=== PATIENT | female | born 1950 | race Caucasian/White ===

== ENCOUNTER → 2019-04-17 | Outpatient (CLI) | payer MEDICARE, OTHER | LOC: COL.RAD 11:34 | DX: H90.42 Sensorineural hearing loss, unilateral, left ear, with unrestricted hearing on the contralateral side (principal) | CPT/HCPCS: A9585 ==

== ENCOUNTER → 2022-04-07 | Outpatient (CLI) | payer MEDICARE, OTHER | LOC: DIA.ED 10:31 | DX: E11.9 Type 2 diabetes mellitus without complications (principal); I10 Essential (primary) hypertension; E78.5 Hyperlipidemia, unspecified ==

== ENCOUNTER 2022-07-20 12:10 | Day surgery (SDC) | payer MEDICARE, OTHER ==
[~2022-07-20] VITALS: Ht 167.6 cm; Wt 98.9 kg
[2022-07-20 13:01] VITALS: BP 120/74; PULSE 58; TEMP 97.8
[2022-07-20] MEDS ORDERED: PRINIVIL5 MG PO (13:16)
[2022-07-20] MEDS ORDERED: ELIQUIS 5MG PO (13:16)
[2022-07-20] MEDS ORDERED: TOPROL XL 50MG50 MG PO (13:17)
[2022-07-20] MEDS ORDERED: WELLBUTRIN XL150 MG PO (13:17)
[2022-07-20] MEDS ORDERED: SYNTHROID 0.10.15 MG PO (13:17)
[2022-07-20] MEDS ORDERED: FLONASE NASAL S16 GM NS (13:18)
[2022-07-20] MEDS ORDERED: LIPITOR 10MG10 MG PO (13:18)
[2022-07-20 16:24] VITALS: BP 107/79; PULSE 62; TEMP 96.8
--- NOTE | 2022-07-20 16:24 | NUR ---
PATIENT ARRIVED TO ROOM 3 FOLLOWING PROCEDURE. PATIENT ALERT AND ORIENTED, DENIES PAIN AND NAUSEA. BREATHING REGULAR AND UNLABORED. HEART TONES REGULAR. SEE CHART FOR VITAL SIGNS. HANDOFF COMPLETED BEDSIDE WITH OR NURSE AND CAFETERIA WORKER. TWO INCISIONS WITH SKIN GLUE PRESENT TO RIGHT UPPER CHEST, NO DRAINAGE OR BLEEDING PRESENT. BLOOD SUGAR 80. PATIENT HAD WATER WITH A MUFFIN AND CHOCOLATE PUDDING, ALL FOODS AND DRINKS TOLERATED WELL. CALL LIGHT IN REACH.
[2022-07-20 16:33] VITALS: BP 141/56; PULSE 62
[2022-07-20 16:35] VITALS: BP 123/67; PULSE 56
[2022-07-20 16:45] VITALS: BP 140/64; PULSE 61
--- NOTE | 2022-07-20 16:45 | NUR ---
PATIENT DENIES PAIN AND NAUSEA. SURGICAL SITES CLEAN AND DRY. DISCHARGE TEACHING COMPLETED WITH PRINTED INSTRUCTIONS AND PORT A CATH CARDS/INFO PACKETS SENT HOME WITH PATIENT. PATIENT VERBALIZED UNDERSTANDING OF TEACHING. PATIENT AMBULATED TO THE RESTROOM WITH A STEADY GAIT AND VOIDED WITHOUT DIFFICULTY. IV REMOVED. PATIENT DISCHARGED HOME WITH SISTER TRANSPORT.
[2022-07-20] MEDS ORDERED: NORCO 325 MG-51 TAB PO (16:47)
== END 2022-07-20 17:20 | disposition home or self-care (01) ==
LOC: SDCO 12:10
DX: C57.00 Malignant neoplasm of unspecified fallopian tube (principal); Z87.891 Personal history of nicotine dependence
CPT/HCPCS: C1788; J0690; J1644; J2704

== ENCOUNTER → 2022-08-12 | Outpatient (CLI) | payer MEDICARE, OTHER ==
[~2022-08-12] MED LIST: ELIQUIS 5MG PO; FLONASE NASAL S16 GM NS; LIPITOR 10MG10 MG PO; NORCO 325 MG-51 TAB PO; PRINIVIL5 MG PO; SYNTHROID 0.10.15 MG PO; TOPROL XL 50MG50 MG PO; WELLBUTRIN XL150 MG PO
== END ==
LOC: DIA.ED
DX: E11.40 Type 2 diabetes mellitus with diabetic neuropathy, unspecified (principal); E78.5 Hyperlipidemia, unspecified; I10 Essential (primary) hypertension
CPT/HCPCS: G0108

== ENCOUNTER 2024-01-16 08:32 | Inpatient (IN) | payer MEDICARE, OTHER ==
[~2024-01-16] VITALS: Ht 167.6 cm; Wt 88.0 kg
[2024-01-16] VITALS (9 sets, daily range): BP systolic 107–125; BP diastolic 60–78; PULSE 76–98; TEMP 97.5–98.2
[2024-01-16] MEDS ORDERED: PROTONIX 40MG T40 MG PO (09:09)
[2024-01-16] MEDS ORDERED: HCTZ 25MG TAB25 MG PO (09:10)
[2024-01-16] MEDS ORDERED: DESYREL 50MG50 MG PO (09:10)
[2024-01-16] MEDS ORDERED: ANTIVERT 12.512.5 MG PO (09:13)
--- NOTE | 2024-01-16 09:37 | NUR ---
PATIENT ARRIVED TO MEDICAL FLOOR AT APPROX 0845. PATIENT IS ALERT, ORIENTED, AND AMBULATED TO HER ROOM. ADMISSION VSS. ADMISSION ASSESSMENT AND MED REC COMPLETE. MED LIST COPIED AND IN CHART. TELEMETRY ON. 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 DENIES PAIN OR DISCOMFORT AT THIS TIME. INITIAL EKG COMPLETE. PATIENT ORIENTED TO ROOM. CALL LIGHT WITHIN REACH.
[2024-01-16] MEDS ORDERED: Temazepam 15 MG CAP PO PRN (09:45)
[2024-01-16] MEDS ORDERED: Docusate Sodium 100 MG CAP PO PRN (09:45)
[2024-01-16] MEDS ORDERED: Acetaminophen 325 MG TAB PO PRN (09:45)
[2024-01-16] MEDS ORDERED: CARDIZEM CD 24240 MG PO (10:15)
[2024-01-16] MEDS ORDERED: Meclizine 25 MG TAB PO PRN (10:30)
--- NOTE | 2024-01-16 10:46 | NUR ---
THIS RN ACCESSED PORT WITH CONDOMINIUM MANAGER ASSISTING. LABS DRAWN.
--- NOTE | 2024-01-16 11:16 | NUR ---
Social work student met with patient to discuss discharge planning. Patient lives in [place] and sees Dr. Carter for primary care. Patient gets medications from [facility] in [place] with no difficulties. Patient has Medicare A and B for primary coverage and has secondary insurance coverage but was not able to remember the name. Patient does not use any DME and is independent with ADLs and driving. Patient has DPOA-HC on file which designates her daughters, Britni as primary (ph# [phone]) and Agatha as secondary (ph# [phone]). Patient plans to return home at time of discharge. Discharge plan: Home
[2024-01-16 11:33] LABS: BASO % 0.1 % (0.0-2.0); EOS # 0.1 K/mm3 (0.0-0.7); EOS % 1.3 % (0.0-4.0); GRAN # 6.7 K/mm3 (1.4-6.5); GRAN % 65.6 % (42.2-75.2); HEMOGLOBIN 10.2 g/dl (12.5-16.0); LYMPH # 2.4 K/mm3 (1.2-3.4); LYMPH % 23.1 % (20.0-51.0); MEAN CELL VOLUME 98 fl (80.0-100.0); MEAN CORPUSCULAR HEMOGLOBIN 31 pg (27-31); MEAN CORPUSCULAR HGB CONC 32 g/dl (33.0-37.0); MEAN PLATELET VOLUME 9.8 fl (7.4-10.4); MONO % 9.5 % (1.7-9.3); PLATELET COUNT 237 K/mm3 (130-400); RED BLOOD COUNT 3.26 M/mm3 (4.10-5.30); REDCELL DISTRIBUTION WIDTH-CV 13.3 % (11.5-14.5)
[2024-01-16 11:35] LABS: HEMATOCRIT 31.8 % (37.0-47.0); INR 1.7 (0.8-3.0)
[2024-01-16 11:42] LABS: ALBUMIN 2.7 g/dL (3.4-4.8); BILIRUBIN,TOTAL 0.3 mg/dL (0.2-1.2); POTASSIUM 3.2 mEq/L (3.5-4.5); TOTAL PROTEIN 5.4 g/dl (6.2-8.1)
[2024-01-16] MEDS ORDERED: Magnesium Sulfate 4% 50 ML IV ONE (14:00)
[2024-01-16 14:04] LABS: CREATININE, serum 0.84 mg/dL (0.57-1.11)
[2024-01-16] MEDS ORDERED: *Potassium Replacement Protocol MC SCH (15:30)
[2024-01-16] MEDS ORDERED: Apixaban 5 MG TABLET PO SCH (21:00)
[2024-01-16] MEDS ORDERED: Atorvastatin 10 MG TAB PO SCH (21:00)
[2024-01-16] MEDS ORDERED: traZODone 50 MG TAB PO SCH (21:00)
--- NOTE | 2024-01-16 21:06 | NUR ---
Patient assessed at this time, see shift assessment, A/Ox4, denies pain or discomfort, sotalol initiated still HR at 70's, BP 113/67, with portacath to right chest, dressing CDI, flushes well with good blood return, denies further needs, call light and personal items within reach, will continue to monitor.
[2024-01-17] VITALS (14 sets, daily range): BP systolic 94–123; BP diastolic 58–82; PULSE 58–77; TEMP 97.8–98.4
--- NOTE | 2024-01-17 | NUR ---
Patient resting in bed, looks comfortable, denies further needs.
[2024-01-17 06:29] LABS: HEMOGLOBIN 10.6 g/dl (12.5-16.0); MEAN CELL VOLUME 97 fl (80.0-100.0); MEAN CORPUSCULAR HEMOGLOBIN 30 pg (27-31); MEAN CORPUSCULAR HGB CONC 31 g/dl (33.0-37.0); MEAN PLATELET VOLUME 9.7 fl (7.4-10.4); PLATELET COUNT 226 K/mm3 (130-400); RED BLOOD COUNT 3.49 M/mm3 (4.10-5.30); REDCELL DISTRIBUTION WIDTH-CV 13.4 % (11.5-14.5)
[2024-01-17 06:31] LABS: HEMATOCRIT 33.8 % (37.0-47.0)
[2024-01-17 06:54] LABS: CREATININE, serum 1.03 mg/dL (0.57-1.11); POTASSIUM 4.7 mEq/L (3.5-4.5)
[2024-01-17] MEDS ORDERED: Lisinopril 5 MG TAB PO SCH (09:00)
[2024-01-17] MEDS ORDERED: buPROPion XL (24-HR) 150 MG TAB PO SCH (09:00)
--- NOTE | 2024-01-17 18:06 | NUR ---
PATIENT CONVERTED TO NSR ON TELEMETRY. EKG COMPLETE. PATIENT DENIES PAIN OR DISCOMFORT. UNEVENTFUL AFTERNOON. SITTING UP IN CHAIR EATING DINNER.
--- NOTE | 2024-01-17 20:30 | NUR ---
Initial shift assessment done- denies pain/SOB/palpitations/dizziness. VSS. Tele on SR 69/min, Will be NPO after MN just in case a cardioversion is needed, No requests, hopes to get some sleep tonight. Up to bathroom on own- steady on feet.
[2024-01-18] VITALS (8 sets, daily range): BP systolic 94–121; BP diastolic 61–69; PULSE 57–64; TEMP 98–98.2
--- NOTE | 2024-01-18 06:15 | NUR ---
Has slept most of the night-- NPO till cardiology sees, Tele shows 61/min SR
[2024-01-18 06:23] LABS: HEMOGLOBIN 10.1 g/dl (12.5-16.0); MEAN CELL VOLUME 99 fl (80.0-100.0); MEAN CORPUSCULAR HEMOGLOBIN 31 pg (27-31); MEAN CORPUSCULAR HGB CONC 32 g/dl (33.0-37.0); MEAN PLATELET VOLUME 9.8 fl (7.4-10.4); PLATELET COUNT 215 K/mm3 (130-400); RED BLOOD COUNT 3.24 M/mm3 (4.10-5.30); REDCELL DISTRIBUTION WIDTH-CV 13.3 % (11.5-14.5)
[2024-01-18 06:27] LABS: HEMATOCRIT 31.9 % (37.0-47.0)
[2024-01-18 06:40] LABS: CALCIUM 8.9 mg/dL (8.4-10.2); CREATININE, serum 0.96 mg/dL (0.57-1.11); POTASSIUM 4.1 mEq/L (3.5-4.5)
--- NOTE | 2024-01-18 09:40 | NUR ---
pt a&ox4 sitting in recliner. vss, pt remains in SR on telemetry. pt NPO and ready for discharge. meds given and assessment complete. pt denies needs at this time. call light in reach.
[2024-01-18] MEDS ORDERED: BETAPACE 80MG80 MG PO (15:20)
--- NOTE | 2024-01-18 15:47 | NUR ---
right port flushed w heparin and deaccessed. discharge instructions given to patient.
== END 2024-01-18 15:57 | disposition home or self-care (01) | DRG 310 ==
LOC: MEDICAL 08:32
PROVIDERS: ADMIT Internal Medicine Cardiovascular Disease
DX: I48.0 Paroxysmal atrial fibrillation (principal)
CPT/HCPCS: J1644; J3475